=== PATIENT | female | born 1995 | race Caucasian/White ===

== ENCOUNTER 2022-08-17 05:51 | Emergency (ER) | payer SELFPAY ==
[2022-08-17] MEDS ORDERED: Sodium Chloride 0.9% 1,000 ML IV ONE (06:18)
[2022-08-17] MEDS ORDERED: Sodium Chloride 0.9% 10 ML Syringe FLUSH PRN (06:18)
[2022-08-17] MEDS ORDERED: Ondansetron 4 MG/2 ML SDV IVPUSH ONE (06:18)
[2022-08-17] MEDS ORDERED: Sodium Chloride 0.9% 2.5 ML Syringe FLUSH PRN (06:18)
[2022-08-17] MEDS ORDERED: Ketorolac 30 MG/ML SDV IVPUSH ONE (06:19)
[2022-08-17 06:38] LABS: APPEARANCE,URINE CLEAR; BASOPHILS PERCENT AUTO 0.2 % (0.0-1.5); BILIRUBIN,URINE NEGATIVE (NEGATIVE); COLOR,URINE YELLOW; EOSINOPHILS ABSOLUTE AUTO 0.1 K/uL (0.0-0.7); EOSINOPHILS PERCENT AUTO 0.5 % (0.0-7.0); GLUCOSE,URINE NEGATIVE (NEGATIVE); HEMOGLOBIN 14.9 g/dL (12.0-16.0); KETONES,URINE TRACE mg/dL (NEGATIVE); LEUKOCYTE ESTERASE,URINE NEGATIVE (NEGATIVE); LYMPHOCYTES ABSOLUTE AUTO 0.5 K/uL (0.6-2.4); LYMPHOCYTES PERCENT AUTO 3.8 % (16.0-40.0); MEAN CORPUSCULAR HEMOGLOBIN 30.3 pg (27.0-32.0); MEAN CORPUSCULAR HGB CONC 33.9 g/dL (31.0-37.0); MEAN CORPUSCULAR VOLUME 89.4 fL (80.0-98.0); MONOCYTES ABSOLUTE AUTO 0.5 K/uL (0.0-0.8); MONOCYTES PERCENT AUTO 4.1 % (0.0-15.0); NEUTROPHILS ABSOLUTE AUTO 11.2 K/uL (1.4-5.7); NEUTROPHILS PERCENT AUTO 91.4 % (48.0-80.0); NITRITE,URINE NEGATIVE (NEGATIVE); NRBC ABSOLUTE 0 K/uL; OCCULT BLOOD,URINE NEGATIVE (NEGATIVE); PLATELET COUNT,PLT 313 K/uL (150-400); PROTEIN,URINE NEGATIVE (NEGATIVE); RED BLOOD CELL COUNT 4.92 M/uL (4.30-5.90); UROBILINOGEN,URINE 0.2 EU/dL (<2.0)
[2022-08-17] MEDS ORDERED: Iopamidol 755 MG/ML 500 ML Multipack Bottle IVPUSH ONE (06:55)
[2022-08-17 06:59] LABS: A/G RATIO 0.9 (0.9-1.6); ALBUMIN 3.7 g/dL (3.4-5.0); BILIRUBIN TOTAL 0.5 mg/dL (0.2-1.0); CALCIUM 8.8 mg/dL (8.5-10.1); CARBON DIOXIDE,CO2 26.2 mmol/L (21.0-32.0); CREATININE 0.9 mg/dL (0.6-1.0); EST CRCL DRUG DOSING (CG) 91.31 mL/min; MAGNESIUM 1.6 mg/dL (1.8-2.4); POTASSIUM,K 4.5 mmol/L (3.5-5.1); PROTEIN TOTAL,TP 7.8 g/dL (6.4-8.2)
[2022-08-17 07:12] LABS: LACTIC ACID 1.4 mmol/L (0.4-2.0)
[2022-08-17 07:18] LABS: CORONAVIRUS COVID-19 NAA NEGATIVE (NEGATIVE); INFLUENZA A NAA NEGATIVE (NEGATIVE); INFLUENZA B NAA NEGATIVE (NEGATIVE)
== END 2022-08-17 09:10 | disposition home or self-care (01) ==
LOC: MW.ED 05:51
DX: R10.31 Right lower quadrant pain (principal); R11.2 Nausea with vomiting, unspecified; R19.7 Diarrhea, unspecified; Z20.822 Contact with and (suspected) exposure to COVID-19
CPT/HCPCS: 0240U; 36415; 74177; 80053; 81003; 83605; 83690; 83735; 84703; 85025; 87070; 87880; 96361; 96374; 96375; 99284; J1885; J2405; J3490; J7030; Q9967

== ENCOUNTER 2024-01-26 15:31 | Emergency (ER) | payer OTHER ==
[2024-01-26] MEDS: Morphine 4 MG/ML Syringe IVPUSH ONE (16:09)
[2024-01-26] MEDS: Ketorolac 30 MG/ML SDV IVPUSH ONE (16:09)
[2024-01-26] MEDS: Ondansetron 4 MG/2 ML SDV IVPUSH ONE (16:09)
[2024-01-26 16:20] LABS: BILIRUBIN,URINE NEGATIVE (NEGATIVE); COLOR,URINE YELLOW; GLUCOSE,URINE NEGATIVE (NEGATIVE); KETONES,URINE NEGATIVE (NEGATIVE); LEUKOCYTE ESTERASE,URINE SMALL (NEGATIVE); NITRITE,URINE NEGATIVE (NEGATIVE); OCCULT BLOOD,URINE NEGATIVE (NEGATIVE); PROTEIN,URINE NEGATIVE (NEGATIVE); UROBILINOGEN,URINE 0.2 EU/dL (<2.0)
[2024-01-26 16:26] LABS: AMORPHOUS SEDIMENT,URINE FEW (NEGATIVE); APPEARANCE,URINE SLT CLOUDY; BACTERIA,URINE FEW (NEGATIVE); EPITHELIAL CELLS,URINE MODERATE (NONE-FEW); RBC,URINE 0-1 (0-2/HPF)
== END 2024-01-26 18:07 | disposition home or self-care (01) ==
LOC: MW.ED 15:31
DX: M54.41 Lumbago with sciatica, right side (principal); Z75.8 Other problems related to medical facilities and other health care
CPT/HCPCS: 72131; 81001; 81025; 96374; 96375; 99284; J1885; J2270; J2405

== ENCOUNTER 2024-09-10 16:04 | Emergency (ER) | payer OTHER | END 2024-09-10 17:34 | disposition home or self-care (01) | LOC: MW.ED 16:04 | DX: S90.31XA Contusion of right foot, initial encounter (principal); Z75.3 Unavailability and inaccessibility of health-care facilities; Z87.891 Personal history of nicotine dependence; W20.8XXA Other cause of strike by thrown, projected or falling object, initial encounter; Y93.89 Activity, other specified | CPT/HCPCS: 73610-26-RT; 73610-RT; 73630-26-RT; 73630-RT; 99282; 99283 ==